=== PATIENT | female | born 1925 | race Caucasian/White ===

== ENCOUNTER 2016-09-26 19:00 | Inpatient (IN) | payer MEDICARE ==
[~2016-09-26] VITALS: Ht 160 cm; Wt 81.9 kg
[~2016-09-26 19:00] MED LIST: AMLO5TAB22 PO; CLON.1 PO; DEPA250T2 PO; DEPA500T3 PO; HYDR-2768 PO; LISI-363 PO; MMW SWISH-SWAL; NORT1CAP54 PO; QUET200 PO
[2016-09-26 19:56] VITALS: BP 164/73; PULSE 88; RESP 18; TEMP 97.1; O2SAT 93
--- NOTE | 2016-09-26 20:24 | PD ---
HPI Chief Complaint: Fall Time Seen by Provider: 20:02 Travel History International Travel<30 days: No Contact w/Intl Traveler<30days: No Traveled to known affect area: No History of Present Illness HPI 89-year-old female came to the emergency room after tripping and falling while using her walker. Patient does have history of frequent falls. After she fell she was unable to get up or stand due to left hip pain. She was brought in by EMS and currently she continues to complain of left hip pain. Patient is slightly hypoxic in triage but does not look or complaining of shortness of breath. Denies of pain anywhere else. She did hit her head but did not lose consciousness. PFSH Past Medical History Narrative Medical List of her past medical history is reviewed from the nursing note. Arthritis: Yes Blood Disorders: No Bipolar Disorder: Yes Anxiety: Yes Depression: Yes Cardiovascular Problems: Yes High Cholesterol: No Chest Pain: Yes Congestive Heart Failure: Yes Diabetes: No Diminished Hearing: No Endocrine: No Gastrointestinal Disorders: No Genitourinary: No Hypertension: Yes Immune Disorder: No Implanted Vascular Access Dvce: No Musculoskeletal: No Neurologic: No Psychiatric: Yes Reproductive: No Respiratory: Yes Immunizations Current: Yes Migraines: Yes PNEUMOCCOCAL Vaccine (Year): 1 ?: Not Menopausal: Yes : 3 Para: 3 Past Surgical History Abdominal Surgery: Yes (Cholecystectomy) Appendectomy: Yes Arteriovenous Shunt: No Cardiac Surgery: No Cholecystectomy: Yes Ear Surgery: No Endocrine Surgery: No Eye Surgery: No Genitourinary Surgery: No Gynecologic Surgery: No Hysterectomy: Yes (1973) Insulin Pump: No Joint Replacement: No Neurologic Surgery: No Oral Surgery: No Pacemaker: No Thoracic Surgery: No Other Surgery: Yes Family History Family Hypercholesterolemia: Yes Social History Alcohol Use: No Tobacco Use: No (50 YEARS AGO) Substance Use: No Allergies-Medications (Allergen,Severity, Reaction): Coded Allergies: Ingrid (Verified Allergy, Severe, Dizziness, Shaking, 09/26/16) Prednisone (Verified Allergy, Severe, 09/26/16) UNKNOWN REACTION DENIES ALLERGY Comments List of her allergies reviewed from the nursing note. Reported Meds & Prescriptions Reported Meds & Active Scripts Active Mmw 15 Ml SWISH-SWAL Q3H MAGIC MOUTHWASH=MIX 1/3 VISCOUS LIDOCAINE(60 ML),1/3 MAALOX(60 ML),AND 1/3BENADRYL(60 ML) TO EQUAL 180 ML TOTAL. Reported Lisinopril 20 mg (Lisinopril) 20 Mg Tab 1 Tab PO DAILY Pamelor 10 Mg C10 Mg 10 Mg Cap 1 Cap PO HS Hctz (Hydrochlorothiazide) 25 Mg Tab 25 Mg PO DAILY PRN [id number] 250 Mg Tab 1 Tab PO DAILY Depakote ER 500 mg (Divalproex Sodium) 500 Mg Tab 500 Mg PO HS Amlodipine5 5 Mg Tab 5 Mg PO DAILY Catapres 0.1 mg (Clonidine HCl) 0.1 Mg Tab 0.05 Tab PO BID Quetiapine Fumarate 200 Mg Tab 150 Mg PO HS Narrative Medication List of her home medications reviewed from the nursing note. Review of Systems Except as stated in HPI: all other systems reviewed are Neg Physical Exam Narrative GENERAL: Awake, alert, elderly, no obvious distress SKIN: Warm and dry. HEAD: Atraumatic. Normocephalic. EYES: Pupils equal and round. No scleral icterus. No injection or drainage. ENT: No nasal bleeding or discharge. Mucous membranes pink and moist. NECK: Trachea midline. No JVD. CARDIOVASCULAR: Regular rate and rhythm. No murmur appreciated. RESPIRATORY: No accessory muscle use. Clear to auscultation. Breath sounds equal bilaterally. GASTROINTESTINAL: Abdomen soft, non-tender, nondistended. Hepatic and splenic margins not palpable. MUSCULOSKELETAL: Left leg shortening. No clubbing. No cyanosis. No edema. No active or passive range of motion at the left hip due to the pain. NEUROLOGICAL: Awake and alert. No obvious cranial nerve deficits. Motor grossly within normal limits. Normal speech. PSYCHIATRIC: Appropriate mood and affect; insight and judgment normal. Data Data Last Documented VS Vital Signs Date Time Temp Pulse Resp B/P Pulse Ox O2 Delivery O2 Flow Rate FiO2 09/26/16 21:38 14 09/26/16 20:30 Room Air 09/26/16 19:56 97.1 88 164/73 93 Orders Complete Blood Count With Diff (09/26/16 20:30) Basic Metabolic Panel (Bmp) (09/26/16 20:30) Prothrombin Time / Inr (Pt) (09/26/16 20:30) Type And Screen (09/26/16 20:30) Chest, Single Ap (09/26/16 ) Morphine Inj (Morphine Inj) (09/26/16 20:30) Ondansetron Inj (Zofran Inj) (09/26/16 20:30) Electrocardiogram (09/26/16 ) Urinary Catheter Insert/Apply (09/26/16 20:30) Valproic Acid (Depakene) (09/26/16 20:58) Ct Brain W/O Iv Contrast(Rout) (09/26/16 ) Hip, Uni(Ap&Lat) W Ap Pelvis (09/26/16 ) Admit Order (Ed Use Only) (09/26/16 22:49) Labs Laboratory Tests Test 09/26/16 21:30 White Blood Count 13.6 TH/MM3 Red Blood Count 3.86 MIL/MM3 Hemoglobin 11.7 GM/DL Hematocrit 35.9 % Mean Corpuscular Volume 92.9 FL Mean Corpuscular Hemoglobin 30.4 PG Mean Corpuscular Hemoglobin 32.7 % Concent Red Cell Distribution Width 15.6 % Platelet Count 161 TH/MM3 Mean Platelet Volume 8.2 FL Neutrophils (%) (Auto) 77.4 % Lymphocytes (%) (Auto) 16.2 % Monocytes (%) (Auto) 5.1 % Eosinophils (%) (Auto) 0.7 % Basophils (%) (Auto) 0.6 % Neutrophils # (Auto) 10.5 TH/MM3 Lymphocytes # (Auto) 2.2 TH/MM3 Monocytes # (Auto) 0.7 TH/MM3 Eosinophils # (Auto) 0.1 TH/MM3 Basophils # (Auto) 0.1 TH/MM3 CBC Comment DIFF FINAL Differential Comment Prothrombin Time 10.2 SEC Prothromb Time International 0.9 RATIO Ratio Sodium Level 139 MEQ/L Potassium Level 4.0 MEQ/L Chloride Level 103 MEQ/L Carbon Dioxide Level 27.5 MEQ/L Anion Gap 9 MEQ/L Blood Urea Nitrogen 31 MG/DL Creatinine 0.97 MG/DL Estimat Glomerular Filtration 54 ML/MIN Rate Random Glucose 113 MG/DL Calcium Level 8.2 MG/DL Valproic Acid (Depakene) Level 66 MCG/ML Blood Type O POSITIVE Antibody Screen NEGATIVE MDM Medical Decision Making Medical Screen Exam Complete: Yes Emergency Medical Condition: Yes Medical Record Reviewed: Yes Interpretation(s) Twelve-lead EKG was reviewed by me. Normal sinus rhythm, left axis deviation, old anterior GA, nonspecific ST-T wave changes. Heart rate of 85 bpm. Differential Diagnosis Hip fracture, hip dislocation Narrative Course 8:57 PM awaiting for the x-ray and the blood test results. I was informed by the nurse that patient's oxygen saturation is running at 89% on room air. She has been supplemented with oxygen via nasal cannula. Awaiting for the chest x- ray. I will order a head CT due to the head injury she sustained during the fall. 9:43 PM left cervical neck fracture. Patient will require to be admitted. Awaiting for the blood test results to come back. Procedures EKG Prior to Arrival: No Physician Communication Physician Communication Dr. Johnson Diagnosis Primary Impression: Hip fracture, left Qualified Code: S72.002A - Hip fracture, left, closed, initial encounter Additional Impression: Hypoxia Admitting Information Admitting Physician Requests: Admit Scripts Rivaroxaban (Xarelto)10 Mg Tab10 Mg PO DAILY #14 TAB Ref 0 Prov:Lamberto Lea 09/28/16 Hydrocodone-Acetaminophen ([place])7.5-325 mg Tab1 Tab PO Q4H PRN (PAIN) #60 TAB Ref 0 Prov:Lamberto Lea 09/28/16 Marino Barrera MD Sep 26, 2016 20:24
[2016-09-26] MEDS ORDERED: MORPHINE SULFATE 4 MG/ML INJ IV PUSH ONE (20:30)
[2016-09-26] MEDS ORDERED: ONDANSETRON HCL 4 MG/2 ML VIAL IV PUSH ONE (20:30)
--- NOTE | 2016-09-26 21:36 | RADRPT ---
EXAM DATE/TIME: 09/26/2016 20:52 [facility] COMPARISON: CHEST SINGLE AP, December 19, 2014, 4:48. INDICATIONS : Trauma. Patient fell today. MEDICAL HISTORY : Hypertension. Congestive heart failure. SURGICAL HISTORY : None. ENCOUNTER: Initial ACUITY: 1 day PAIN SCORE: 0/10 LOCATION: Bilateral chest FINDINGS: A single view of the chest demonstrates the lungs to be symmetrically aerated without evidence of mas s, infiltrate or effusion. The cardiomediastinal contours are unremarkable. Osseous structures are intact. CONCLUSION: No definite acute disease Kolton Valverde MD on September 26, 2016 at 21:34 Board Certified Radiologist. This report was verified electronically.
--- NOTE | 2016-09-26 21:38 | RADRPT ---
EXAM DATE/TIME: 09/26/2016 20:54 [facility] COMPARISON: No previous studies available for comparison. INDICATIONS : Left hip pain after fall. MEDICAL HISTORY : None. SURGICAL HISTORY : None. ENCOUNTER: Initial ACUITY: 1 day PAIN SCORE: 10/10 LOCATION: Left Hip. FINDINGS: There is a moderately angulated basicervical left femoral neck fracture. Right hip is grossly intact. Mild degenerative changes present in both sides. No displaced pelvic fracture. CONCLUSION: Moderately angulated basicervical left femoral neck fracture. Kolton Valverde MD on September 26, 2016 at 21:36 Board Certified Radiologist. This report was verified electronically.
--- NOTE | 2016-09-26 21:41 | RADRPT ---
EXAM DATE/TIME: 09/26/2016 21:06 [facility] COMPARISON: CT CERVICAL SPINE W/O CONTRAST, October 09, 2015, 11:30. HIP LEFT (AP&LAT 2/3VWS) W AP PELVIS, 2016, 20:54. CT BRAIN W/O CONTRAST, October 09, 2015, 11:30. INDICATIONS : Trauma; fall today. RADIATION DOSE: 34.26 CTDIvol (mGy) MEDICAL HISTORY : Hypertension. SURGICAL HISTORY : None. ENCOUNTER: Initial ACUITY: 1 day PAIN SCALE: 2/10 LOCATION: cranial TECHNIQUE: Multiple contiguous axial images were obtained of the head. Using automated exposure control and adj ustment of the mA and/or kV according to patient size, radiation dose was kept as low as reasonably a chievable to obtain optimal diagnostic quality images. FINDINGS: Ventricles are stable and symmetric. There is patchy mild diminished attenuation in periventricular w michaela matter which is unchanged. Bilateral basal ganglial calcifications are noted. No evidence of int racranial mass or hemorrhage. There is nothing to suggest acute infarction. The extracranial structur es are benign and intact. CONCLUSION: No acute intracranial findings Kolton Valverde MD on September 26, 2016 at 21:38 Board Certified Radiologist. This report was verified electronically.
[2016-09-26 21:51] LABS: AUTOMATED NEUTROPHIL # 10.5 TH/MM3 (1.8-7.7); BASOPHIL # 0.1 TH/MM3 (0-0.2); BASOPHIL % 0.6 % (0.0-2.0); EOSINOPHIL # 0.1 TH/MM3 (0-0.4); EOSINOPHIL % 0.7 % (0.0-4.0); HEMATOCRIT 35.9 % (35.0-46.0); HEMO FLAGS DIFF FINAL; LYMPH % 16.2 % (9.0-44.0); LYMPHOCYTE # 2.2 TH/MM3 (1.0-4.8); MEAN CELL VOLUME 92.9 FL (80.0-100.0); MEAN CORPUSCULAR HEMOGLOBIN 30.4 PG (27.0-34.0); MEAN CORPUSCULAR HGB CONC 32.7 % (32.0-36.0); MONO % 5.1 % (0.0-8.0); NEUT % 77.4 % (16.0-70.0); PLATELET COUNT 161 TH/MM3 (150-450); RED BLOOD COUNT 3.86 MIL/MM3 (4.00-5.30); RED CELL DISTRIBUTION WIDTH 15.6 % (11.6-17.2); WHITE BLOOD COUNT 13.6 TH/MM3 (4.0-11.0)
[2016-09-26 22:03] LABS: INTERNATIONAL NORMALIZED RATIO 0.9 RATIO; PROTHROMBIN TIME - PATIENT 10.2 SEC (9.8-11.6)
[2016-09-26 22:26] LABS: BICARBONATE 27.5 MEQ/L (21.0-32.0)
[2016-09-26] MEDS ORDERED: ONDANSETRON HCL 4 MG/2 ML VIAL IVP PRN (23:00)
[2016-09-26] MEDS ORDERED: ENALAPRILAT 1.25 MG/ML VIAL IV PUSH PRN (23:00)
[2016-09-26] MEDS ORDERED: NALOXONE HCL 0.4 MG/ML AMP IV PRN (23:00)
[2016-09-26] MEDS ORDERED: SODIUM CHLORIDE 0.9% FLUSH 5 ML FLUSH FLUSH PRN (23:00)
[2016-09-26] MEDS ORDERED: HYDROmorphone HCL 2 MG TAB PO PRN (23:00)
--- NOTE | 2016-09-26 23:12 | HHI.HP ---
HPI Service [facility] Hospitalists Primary Care Physician Godfrey Ludwig, PhD, MD Admission Diagnosis left hip fracture, hypoxia Chief Complaint: fall with pain left hip Travel History International Travel<30 Days: No Contact w/Intl Traveler <30 Da: No Traveled to Known Affected Are: No History of Present Illness 89 y/o female with hx trip and fall while using walker with hx frequent falls was unable to stand without pain to left hip. In er had xray showed left femeral fracture ,also patient had slight hypoxia required oxygen . Patient will be admitted with orthopedic consult. Review of Systems Musculoskeletal: COMPLAINS OF: Joint pain Past Family Social History Past Medical History bipolar ,djd,anxiety,depression,chf,hypertension Past Surgical History gallbladder,hysterectomy Reported Medications lisinopril 20,pamalor 10,depakote 250 and 500mg ,norvasc 5 catapres ,5 bid Quetiapine 150 Allergies: Coded Allergies: Ingrid (Verified Allergy, Severe, Dizziness, Shaking, 09/26/16) Prednisone (Verified Allergy, Severe, 09/26/16) UNKNOWN REACTION DENIES ALLERGY Social History smoked years ago Physical Exam Vital Signs Vital Signs Date Time Temp Pulse Resp B/P Pulse Ox O2 Delivery O2 Flow Rate FiO2 09/26/16 21:38 14 09/26/16 20:30 Room Air 09/26/16 19:56 97.1 88 18 164/73 93 Physical Exam GENERAL: This is a well-nourished, well-developed patient, in no apparent distress. SKIN: No rashes, ecchymoses or lesions. Cool and dry. HEAD: Atraumatic. Normocephalic. No temporal or scalp tenderness. EYES: Pupils equal round and reactive. Extraocular motions intact. No scleral icterus. No injection or drainage. ENT: Nose without bleeding, purulent drainage or septal hematoma. Throat without erythema, tonsillar hypertrophy or exudate. Uvula midline. Airway patent. NECK: Trachea midline. No JVD or lymphadenopathy. Supple, nontender, no meningeal signs. CARDIOVASCULAR: Regular rate and rhythm without murmurs, gallops, or rubs. RESPIRATORY: Clear to auscultation. Breath sounds equal bilaterally. No wheezes , rales, or rhonchi. GASTROINTESTINAL: Abdomen soft, non-tender, nondistended. No hepato-splenomegaly , or palpable masses. No guarding. MUSCULOSKELETAL: Extremities without clubbing, cyanosis, or edema. Pain on movement left hip NEUROLOGICAL: Awake and alert. Cranial nerves II through XII intact. Motor and sensory grossly within normal limits. Five out of 5 muscle strength in all muscle groups. Normal speech. Laboratory Laboratory Tests Test 09/26/16 21:30 White Blood Count 13.6 Red Blood Count 3.86 Hemoglobin 11.7 Hematocrit 35.9 Mean Corpuscular Volume 92.9 Mean Corpuscular Hemoglobin 30.4 Mean Corpuscular Hemoglobin 32.7 Concent Red Cell Distribution Width 15.6 Platelet Count 161 Mean Platelet Volume 8.2 Neutrophils (%) (Auto) 77.4 Lymphocytes (%) (Auto) 16.2 Monocytes (%) (Auto) 5.1 Eosinophils (%) (Auto) 0.7 Basophils (%) (Auto) 0.6 Neutrophils # (Auto) 10.5 Lymphocytes # (Auto) 2.2 Monocytes # (Auto) 0.7 Eosinophils # (Auto) 0.1 Basophils # (Auto) 0.1 CBC Comment DIFF FINAL Differential Comment Prothrombin Time 10.2 Prothromb Time International 0.9 Ratio Sodium Level 139 Potassium Level 4.0 Chloride Level 103 Carbon Dioxide Level 27.5 Anion Gap 9 Blood Urea Nitrogen 31 Creatinine 0.97 Estimat Glomerular Filtration 54 Rate Random Glucose 113 Calcium Level 8.2 Valproic Acid (Depakene) Level 66 Result Diagram: 09/26/16212909/26/162129 Imaging Last 24 hours Impressions Hip and Pelvis X-Ray 09/26/16 0000 Signed Impressions: Service Date/Time: Monday, September 26, 2016 20:54 - CONCLUSION: Moderately angulated basicervical left femoral neck fracture. Kolton Valverde MD Head CT 09/26/16 0000 Signed Impressions: Service Date/Time: Monday, September 26, 2016 21:06 - CONCLUSION: No acute intracranial findings Kolton Valverde MD Chest X-Ray 09/26/16 0000 Signed Impressions: Service Date/Time: Monday, September 26, 2016 20:52 - CONCLUSION: No definite acute disease Kolton Valverde MD Course in er given pain meds Assessment and Plan Problem List: (1) Hip fracture, left Status: Acute Plan: admit with ortho consult (2) Hypoxia Status: Acute Plan: required oxygen 2 liters with improvement chest xray was negative (3) HTN (hypertension), benign Status: Acute Plan: continue home meds add vasotec IV (4) Bipolar 1 disorder Status: Chronic Plan: continue home meds Assessment and Plan ortho consult continue oxygen and did have negative CT head and had slight elevation wbc will get urine and follow up labs Code Status full Discussed Condition With patient Physician Certification 2 Midnight Certification Type: Admission for Inpatient Services Order for Inpatient Services The services are ordered in accordance with Medicare regulations or non- Medicare payer requirements, as applicable. In the case of services not specified as inpatient-only, they are appropriately provided as inpatient services in accordance with the 2-midnight benchmark. Estimated LOS (days): 3 3 days is the estimated time the patient will need to remain in the hospital, assuming treatment plan goals are met and no additional complications. Post-Hospital Plan: SNF Problem Qualifiers (1) Hip fracture, left: Qualified Code: S72.002A - Hip fracture, left, closed, initial encounter Cash Johnson MD Sep 26, 2016 23:12
[2016-09-26] MEDS ORDERED: NYSTAT/DIPHENHY/LIDO MOUTHWASH (Adult) 120ML SWISH-SPIT PRN (23:30)
[2016-09-26] MEDS ORDERED: HYDROmorphone HCL PF 1 MG/ML VIAL IV PUSH PRN (23:45)
[2016-09-27] VITALS (8 sets, daily range): BP systolic 138–218; BP diastolic 65–99; PULSE 82–106; RESP 16–19; TEMP 96.1–99.8; O2SAT 92–96
[2016-09-27] MEDS ORDERED: SODIUM CHLORID 0.9% 500 ML IV SCH (01:15)
[2016-09-27] MEDS ORDERED: INSULIN HUMAN REGULAR 1,000 UNITS/10 ML VIAL SQ PRN (01:15)
[2016-09-27] MEDS: LACTATED RINGER'S 1000 ML IV SCH (05:36)
[2016-09-27] MEDS: SODIUM CHLOR 0.45% 1000 ML INJ 1,000 ML IV SCH (05:36)
--- NOTE | 2016-09-27 06:58 | PD.ORT.PN ---
Subjective Subjective Remarks s/p fall at home. left hip pain. Objective Vitals Vital Signs Date Time Temp Pulse Resp B/P Pulse Ox O2 Delivery O2 Flow Rate FiO2 09/27/16 05:38 95 Nasal Cannula 4.00 09/27/16 04:00 96.1 89 16 166/73 95 09/27/16 01:35 96.6 86 17 165/81 95 09/27/16 00:00 96.6 96 16 218/99 92 09/26/16 21:38 14 09/26/16 20:30 Room Air 09/26/16 19:56 97.1 88 18 164/73 93 I/O 09/26/16 09/26/16 09/26/16 09/27/16 09/27/16 09/27/16 07:00 15:00 23:00 07:00 15:00 23:00 Intake Total 480 ml Balance 480 ml Intake Oral 480 ml # Voids 0 # Bowel Movements 0 Result Diagram: 09/26/16212909/26/162129 Other Results Laboratory Tests Test 09/26/16 21:30 Prothrombin Time 10.2 SEC (9.8-11.6) Prothromb Time International 0.9 RATIO Ratio Objective Remarks LLE: pain with hip ROM. NVI Assessment & Plan Assessment and Plan 1) Left Femoral Neck Fx -npo -consents -surgery today Lamberto Lea Sep 27, 2016 06:58
--- NOTE | 2016-09-27 07:12 | MB ---
cc: RASHMI RIVAS DATE OF CONSULTATION 09/27/2016 DATE OF ADMISSION 09/26/[address] Mika Del Toro HISTORY Oralia is an 89-year female who has a history of multiple falls. She normally ambulates with a walker or a cane. She describes a mechanical fall. She landed on her left hip. She had immediate left hip pain. She was unable to stand or ambulate. She presented to the emergency room where x-rays revealed a displaced left femoral neck fracture. She is currently awake and alert on the orthopedic floor. Her only complaint is her left hip. Pain is worse with movement and is improved with rest. She denies any dizziness, syncope or loss of consciousness. She denies any hip pain prior to her fall. PAST MEDICAL HISTORY ILLNESSES 1. Bipolar disorder 2. Arthritis 3. Anxiety 4. Depression 5. CHF 6. Hypertension SURGERIES 1. Cholecystectomy 2. Hysterectomy MEDICATIONS 1. Lisinopril 2. Depakote 3. Norvasc 4. Catapres 5. Quetiapine ALLERGIES LUCIA AND PREDNISONE SOCIAL HISTORY The patient denies current alcohol, tobacco or drug use. REVIEW OF SYSTEMS The patient denies headache, visual changes, neck pain, chest pain, abdominal pain, nausea, vomiting, recent weight loss, numbness of the extremities. She complains of the left hip pain. PHYSICAL EXAMINATION The patient is a well-developed, well-nourished 89-year female who is awake and alert. She is mildly anxious. VITAL SIGNS: Temperature 96.1, pulse 89, respirations 16, blood pressure 166/73, O2 sat 95% on 4 liters nasal cannula. HEAD: The patient is normocephalic. EYES: Pupils are equal. NECK: Soft and nontender. Trachea is midline. ABDOMEN: Soft, nontender, nondistended. EXTREMITIES: Examination of right and left upper extremities reveals no obvious pain or deformity with shoulder, elbow or wrist motion. She has intact sensation in all fingers. She has good cap refill in all fingers. Sports Announcer strength is +5. Skin is intact in both hands. Radial pulses are palpable bilaterally. Examination of the right leg reveals no pain with hip, knee or ankle motion. Skin is intact. Dorsalis pedis pulses palpable. Sensation is grossly intact. Examination of the left leg reveals pain with any hip motion. She has no tenderness on her knee, tibia or ankle. Sensation is intact. Dorsalis pedis pulses palpable. X-RAYS X-rays of left hip were reviewed. X-rays reveal a displaced left femoral neck fracture. IMPRESSION 1. Osteoporosis 2. Displaced left femoral neck fracture 3. CHF 4. Hypertension PLAN Treatment options were discussed with the patient. At this point, I would recommend left hip hemiarthroplasty. The risks of surgery include bleeding, infection, injury to arteries, nerves and blood vessels, hip dislocation, leg length discrepancy as well as medical complications including blood clot, stroke, heart attack and . All questions were answered. I will plan on surgery today. A mid-level provider in my office (nurse practitioner or physician coding assistant) may see this patient on follow-up visits and continue to implement the objectives of this plan including: Starting or adjusting medications, injections , cast application, orthotics, brace application, physical therapy, radiological studies (including x-ray, MRI, CT, ultrasound, bone scan), vascular studies, neurologic studies, specialist consultation, and proceeding with surgical management, as appropriate. MD JOE Padilla/RACHEL /6:53 AM /7:04 AM TERESO
[2016-09-27 08:06] LABS: AUTOMATED NEUTROPHIL # 11.5 TH/MM3 (1.8-7.7); BASOPHIL # 0.1 TH/MM3 (0-0.2); BASOPHIL % 0.5 % (0.0-2.0); EOSINOPHIL # 0.1 TH/MM3 (0-0.4); HEMO FLAGS DIFF FINAL; LYMPH % 10.8 % (9.0-44.0); LYMPHOCYTE # 1.6 TH/MM3 (1.0-4.8); MEAN CELL VOLUME 93.1 FL (80.0-100.0); MEAN CORPUSCULAR HGB CONC 33.3 % (32.0-36.0); MONO % 7.7 % (0.0-8.0); PLATELET COUNT 146 TH/MM3 (150-450); RED BLOOD COUNT 3.66 MIL/MM3 (4.00-5.30); RED CELL DISTRIBUTION WIDTH 15.5 % (11.6-17.2); WHITE BLOOD COUNT 14.3 TH/MM3 (4.0-11.0)
[2016-09-27] MEDS ORDERED: ceFAZolin 2 GM PREMIX 50 ML ONE (08:15)
[2016-09-27] MEDS ORDERED: VANCOMYCIN HCL 1000 MG VIAL ONE (08:15)
[2016-09-27] MEDS ORDERED: SODIUM CHLOR 0.9% 250 ML INJ 250 ML ONE (08:15)
[2016-09-27] MEDS ORDERED: GENTAMICIN SULFATE 80 MG/2 ML VIAL ONE (08:15)
[2016-09-27] MEDS ORDERED: FAMOTIDINE 20 MG/2 ML VIAL ONE (08:18)
[2016-09-27 08:33] LABS: BICARBONATE 27.1 MEQ/L (21.0-32.0); POTASSIUM 4.2 MEQ/L (3.5-5.1)
[2016-09-27] MEDS ORDERED: MIDAZOLAM HCL 2 MG/2 ML VIAL ONE (08:43)
[2016-09-27] MEDS: amLODIPine BESYLATE 5 MG TAB PO SCH (09:00)
[2016-09-27] MEDS: SODIUM CHLORIDE 0.9% FLUSH 5 ML FLUSH FLUSH SCH ×2 (09:00→21:36)
[2016-09-27] MEDS: DIVALPROEX SODIUM E.R. 250 MG TAB PO SCH (09:00)
[2016-09-27] MEDS: LISINOPRIL 20 MG TAB PO SCH (09:00)
[2016-09-27] MEDS: cloNIDine HCL 0.1 MG TAB PO SCH ×2 (09:00→21:37)
[2016-09-27] MEDS ORDERED: TRANEXAMIC ACID INJ 1,200 MG in SODIUM CHLORIDE 0.9% INJ 100 ML IV ONE (09:00)
[2016-09-27] MEDS ORDERED: MORPHINE SULFATE 4 MG/ML INJ IV PUSH PRN (10:30)
[2016-09-27] MEDS ORDERED: Post-op Orders (for Pharmacy) MISC XX ONE (10:30)
[2016-09-27] MEDS ORDERED: SODIUM CHLORIDE 0.9% FLUSH 5 ML FLUSH IVF PRN (10:30)
--- NOTE | 2016-09-27 10:34 | PD.OP ---
cc: Best Jeffery MD Operative Report Date of Surgery: Sep 27, 2016 Preoperative Diagnosis: Displaced left femoral neck fracture Postoperative Diagnosis: Procedure: Left hip bipolar hemiarthroplasty Anesthesia: Gen. Surgeon: Best Jeffery Cell Technician(s): HUDSON Vazquez PA-C The surgical procedure was assisted by my physician assistant librarian. My P.A. presence was necessary throughout this case for the manipulation and positioning of the surgical extremity. My P.A. was assisting me throughout the duration of this procedure. The skill set of a physician assistant librarian was medically necessary to complete this procedure. During the surgical case the radiological technologist was working at the back table and the physician assistant librarian was directly assisting me. Operation and Findings: PLAN OF ACTIVITY Weight bear as tolerated. IMPLANTS USED DePuy Corail size [14] stem with size [48] bipolar head and [+1.5] neck. DRAIN: 7 mm Dimitri-Reeder drain DETAILS OF PROCEDURE This patient was brought into the operating room and placed on the OR table. The patient was given anesthesia. The patient received IV antibiotics. The patient was then placed in lateral decubitus position. The hip and leg were prepped with alcohol, followed by Hibiclens and draped in a usual sterile fashion. Clean air was used for this procedure. Time out procedure was performed. The procedure began with a 5 inch incision over the posterolateral hip. The subcutaneous tissue was dissected with the Bovie. The iliotibial band were split in line with fibers. The Charnley retractor was placed. The piriformis and external rotators were released from the femur and tagged with a #1 Vicryl suture. The capsule is now incised and tagged with #1 Vicryl. The femoral neck fracture was now visualized. A corkscrew was now used to remove the femoral head. The femoral head was sized and measured. Soft tissue was now protected. The hip skid was placed underneath the femoral neck. An oscillating saw was used to make a femoral neck cut. At this point attention was turned to preparation of the proximal femur. A box osteotome was used to remove the lateral cortex of the femoral neck. The T- handle reamer was used to open the femoral canal. Next, the canal was broached. A lateralizing reamer was used to help lateralize the prosthesis. At this point a trial head and neck were placed. The hip was reduced. The patient was found to have excellent stability with good range of motion. Trial components were removed. Soft tissue and bone were thoroughly irrigated. A Corail stem was now opened. The stem was now impacted into the proximal femur. Care was taken to keep appropriate anteversion. The head and neck were now impacted onto the stem. The hip was again reduced. The hip was found to have good range of motion and good stability. Leg lengths were clinically equal. The wound was thoroughly irrigated. The capsule, piriformis and iliotibial band were closed with #1 Vicryl. Subcutaneous tissue was closed with 3-0 Vicryl. The skin was closed with radha. A sterile dressing was applied with Primapore. The patient was placed into a knee immobilizer. The patient was awakened and transferred to the recovery room in stable condition. Needle and sponge counts were correct. Best Jeffery MD Sep 27, 2016 10:34
[2016-09-27] MEDS ORDERED: ERGOCALCIFEROL (VIT D2) 50,000 UNIT CAP PO ONE (11:00)
[2016-09-27] MEDS ORDERED: DO NOT ADM ANY ANTICOAGULANT DRUGS XX PRN (11:00)
[2016-09-27] MEDS ORDERED: NEOSTIGMINE 3 MG/3 ML SYR IV ONE (11:02)
[2016-09-27] MEDS ORDERED: ONDANSETRON HCL 4 MG/2 ML VIAL IV PUSH ONE (11:02)
[2016-09-27] MEDS ORDERED: PROPOFOL 200 MG/20 ML AMP IV ONE (11:02)
[2016-09-27] MEDS ORDERED: *RESP: ALBUTEROL 2.5 MG/3 ML NEB (PRN) PERIprocedural Use ONLY NEB ONE (11:26)
--- NOTE | 2016-09-27 11:27 | EKG ---
Date Performed: 09/26/2016 Time Performed: 21:42:28 PTAGE: 89 years EKG: Sinus rhythm BORDERLINE LEFT AXIS DEVIATION MODERATE INTRAVENTRICULAR CONDUCTION DELAY MODERATE VOLTAGE CRITERIA FOR LVH, CONSIDER NORMAL VARIANT BORDERLINE ECG PREVIOUS TRACING : 12/18/2014 19.30 DOCTOR: Francisco Roberts Interpretating Date/Time 09/27/2016 11:25:36
[2016-09-27] MEDS ORDERED: fentaNYL CITRATE 250 MCG/5 ML AMP ONE (11:48)
--- NOTE | 2016-09-27 13:01 | RADRPT ---
EXAM DATE/TIME: 09/27/2016 11:18 [facility] COMPARISON: HIP LEFT (AP&LAT 2/3VWS) W AP PELVIS, September 26, 2016, 20:54. INDICATIONS : Evaluate left hip post total replacement. MEDICAL HISTORY : Hypertension. Congestive heart failure. SURGICAL HISTORY : Total left hip. ENCOUNTER: Subsequent ACUITY: 2 days PAIN SCORE: 4/10 LOCATION: Left Hip FINDINGS: The patient is status post a total hip arthroplasty with a bipolar prosthesis. Prosthesis is well-sea otto. Alignment is anatomic. A fracture is not appreciated. CONCLUSION: Anatomic alignment. Bam Rendon MD FACR. Bam Rendon MD FACR on September 27, 2016 at 12:59 Board Certified Radiologist. This report was verified electronically.
--- NOTE | 2016-09-27 14:47 | HHI.PR ---
Subjective Remarks No new complaints. Objective Vitals Vital Signs Date Time Temp Pulse Resp B/P Pulse Ox O2 Delivery O2 Flow Rate FiO2 09/27/16 13:00 98.5 82 19 138/65 93 09/27/16 12:15 84 16 135/83 96 Nasal Cannula 3 09/27/16 12:00 84 16 128/74 96 Aerosol Mask 10 09/27/16 11:45 80 16 140/84 95 Nasal Cannula 3 09/27/16 11:30 80 16 151/80 98 Aerosol Mask 10 09/27/16 11:15 82 16 141/85 95 Nasal Cannula 3 09/27/16 11:00 97.7 80 16 169/92 91 Nasal Cannula 3 09/27/16 08:00 97.4 92 18 194/83 96 09/27/16 05:38 95 Nasal Cannula 4.00 09/27/16 04:00 96.1 89 16 166/73 95 09/27/16 01:35 96.6 86 17 165/81 95 09/27/16 00:00 96.6 96 16 218/99 92 09/26/16 21:38 14 09/26/16 20:30 Room Air 09/26/16 19:56 97.1 88 18 164/73 93 09/26/16 09/26/16 09/27/16 15:00 23:00 07:00 Intake Total 480 ml Balance 480 ml Intake Oral 480 ml # Voids 0 # Bowel Movements 0 Result Diagram: 09/27/16 0703 09/27/16 0703 Imaging Last Impressions Hip and Pelvis X-Ray 09/27/16 1030 Signed Impressions: Service Date/Time: Tuesday, September 27, 2016 11:18 - CONCLUSION: Anatomic alignment. Bam Rendon MD Head CT 09/26/16 0000 Signed Impressions: Service Date/Time: Monday, September 26, 2016 21:06 - CONCLUSION: No acute intracranial findings Kolton Valverde MD Chest X-Ray 09/26/16 0000 Signed Impressions: Service Date/Time: Monday, September 26, 2016 20:52 - CONCLUSION: No definite acute disease Kolton Valverde MD Objective Remarks GENERAL: This is a well-nourished, well-developed patient, in no apparent distress. CARDIOVASCULAR: Regular rate and rhythm without murmurs, gallops, or rubs. RESPIRATORY: Clear to auscultation. Breath sounds equal bilaterally. No wheezes , rales, or rhonchi. GASTROINTESTINAL: Abdomen soft, non-tender, nondistended. Normal active bowel sounds MUSCULOSKELETAL: Extremities without clubbing, cyanosis, or edema. NEURO: Alert & Oriented x4 to person, place, time, situation. Moves all ext x4 A/P Problem List: (1) Hip fracture, left Status: Acute Plan: - repaired by Dr. Best Lowery by Left hip bipolar hemiarthroplasty - PT - norco prn - will need SNF at the conclusion of this hospitalization - constipation precautions (2) Hypoxia Status: Acute Plan: required oxygen 2 liters with improvement chest xray was negative (3) HTN (hypertension), benign Status: Acute Plan: continue home meds add vasotec IV (4) Bipolar 1 disorder Status: Chronic Plan: continue home meds Problem Qualifiers (1) Hip fracture, left: Qualified Code: S72.002A - Hip fracture, left, closed, initial encounter Mika Del Toro DO Sep 27, 2016 14:47
[2016-09-27] MEDS: ceFAZolin 2 GM PREMIX 50 ML IV SCH ×2 (15:55→21:36)
[2016-09-27] MEDS: ACETAMINOPHEN/HYDROcodone 325 MG/5 MG TAB PO PRN (18:52)
[2016-09-27] MEDS: SODIUM CHLORIDE 0.9% FLUSH 5 ML FLUSH IVF SCH (21:00)
[2016-09-27] MEDS: VANCOMYCIN INJ 1,000 MG in SODIUM CHLOR 0.9% 250 ML INJ 250 ML IV SCH (21:36)
[2016-09-27] MEDS: QUEtiapine FUMARATE 300 MG TAB PO SCH (21:37)
[2016-09-27] MEDS: DIVALPROEX SODIUM E.R. 500 MG TAB PO SCH (21:37)
[2016-09-28] VITALS (8 sets, daily range): BP systolic 111–166; BP diastolic 58–77; PULSE 81–105; RESP 17–18; TEMP 97.9–99.7; O2SAT 92–98
[2016-09-28] MEDS: LACTATED RINGER'S 1000 ML IV SCH (01:15)
[2016-09-28] MEDS: SODIUM CHLOR 0.45% 1000 ML INJ 1,000 ML IV SCH ×3 (01:23→19:56)
[2016-09-28] MEDS: ceFAZolin 2 GM PREMIX 50 ML IV SCH (03:09)
[2016-09-28] MEDS ORDERED: XARE10TA PO (06:14)
[2016-09-28] MEDS ORDERED: HYDR-3288 PO (06:14)
[2016-09-28] MEDS ORDERED: WALKER/ADULT/FO1 MIS (06:14)
[2016-09-28] MEDS: MAGNESIUM HYDROXIDE SUSP 30 ML CUP PO PRN ×2 (06:26→21:13)
[2016-09-28] MEDS: ACETAMINOPHEN/HYDROcodone 325 MG/5 MG TAB PO PRN (06:27)
[2016-09-28 07:12] LABS: AUTOMATED NEUTROPHIL # 7.6 TH/MM3 (1.8-7.7); BASOPHIL # 0.1 TH/MM3 (0-0.2); BASOPHIL % 0.8 % (0.0-2.0); EOSINOPHIL # 0.1 TH/MM3 (0-0.4); EOSINOPHIL % 1.2 % (0.0-4.0); HEMATOCRIT 29.7 % (35.0-46.0); LYMPH % 17.1 % (9.0-44.0); LYMPHOCYTE # 1.8 TH/MM3 (1.0-4.8); MEAN CELL VOLUME 93.2 FL (80.0-100.0); MEAN CORPUSCULAR HEMOGLOBIN 31.2 PG (27.0-34.0); MEAN CORPUSCULAR HGB CONC 33.4 % (32.0-36.0); MONO % 10.5 % (0.0-8.0); NEUT % 70.4 % (16.0-70.0); PLATELET COUNT 127 TH/MM3 (150-450); RED BLOOD COUNT 3.18 MIL/MM3 (4.00-5.30); RED CELL DISTRIBUTION WIDTH 15.5 % (11.6-17.2); WHITE BLOOD COUNT 10.8 TH/MM3 (4.0-11.0)
[2016-09-28 07:20] LABS: HEMO FLAGS AUTO DIFF
[2016-09-28 07:31] LABS: BICARBONATE 29.8 MEQ/L (21.0-32.0); MAGNESIUM 2.2 MG/DL (1.5-2.5); POTASSIUM 4.3 MEQ/L (3.5-5.1)
[2016-09-28 08:50] LABS: BANDS 2 % (0-6); EOSINOPHILS 3 % (0-4); MYELOCYTES 2 % (0-0); NEUTROPHIL # MANUAL DIFF 8.5 TH/MM3 (1.8-7.7); POLYS (SEG NEUTROPHILS) 75 % (16-70); WBC DIFF SAMPLE 100
[2016-09-28 08:51] LABS: PLATELET ESTIMATE SMEAR LOW (NORMAL); PLATELET MORPHOLOGY NORMAL (NORMAL); SCAN/DIFF FINAL DIFF MANUAL
[2016-09-28] MEDS: SODIUM CHLORIDE 0.9% FLUSH 5 ML FLUSH IVF SCH ×2 (09:00→21:00)
[2016-09-28] MEDS: VANCOMYCIN INJ 1,000 MG in SODIUM CHLOR 0.9% 250 ML INJ 250 ML IV SCH (09:35)
[2016-09-28] MEDS: ENOXAPARIN SODIUM 30 MG/0.3 ML SYRINGE SQ SCH (09:36)
[2016-09-28] MEDS: DIVALPROEX SODIUM E.R. 250 MG TAB PO SCH (09:37)
[2016-09-28] MEDS: cloNIDine HCL 0.1 MG TAB PO SCH ×2 (09:37→21:13)
[2016-09-28] MEDS: LISINOPRIL 20 MG TAB PO SCH (09:37)
[2016-09-28] MEDS: amLODIPine BESYLATE 5 MG TAB PO SCH (09:37)
[2016-09-28] MEDS: CHOLECALCIFEROL (VIT D3) 5000 UNIT CAP PO SCH (09:37)
[2016-09-28] MEDS: SODIUM CHLORIDE 0.9% FLUSH 5 ML FLUSH FLUSH SCH ×2 (09:38→21:13)
--- NOTE | 2016-09-28 14:44 | HHI.PR ---
Subjective Remarks Pleasantly confused No complaints. Sitting in the chair Pt still requiring 3L supplemental O2 Pts Brittany MURILLO, at bedside and case discussed with her. Objective Vitals Vital Signs Date Time Temp Pulse Resp B/P Pulse Ox O2 Delivery O2 Flow Rate FiO2 09/28/16 09:50 Nasal Cannula 3.00 09/28/16 07:52 99.0 95 17 120/59 93 09/28/16 04:00 99.1 102 18 166/77 92 09/28/16 00:00 99.0 105 18 111/58 96 09/27/16 21:05 98.6 103 17 197/88 95 09/27/16 18:23 Nasal Cannula 3.00 09/27/16 16:00 99.8 106 18 149/68 94 09/27/16 09/27/16 09/28/16 14:59 22:59 06:59 Intake Total 50 ml 720 ml 240 ml Output Total 210 ml 470 ml 435 ml Balance -160 ml 250 ml -195 ml Intake Oral 720 ml 240 ml IV Total 50 ml Output Urine Total 150 ml 400 ml 375 ml Drainage Total 60 ml 70 ml 60 ml # Bowel Movements 0 0 Result Diagram: 09/28/16 0629 09/28/16 0629 Other Results Laboratory Tests Test 09/26/16 09/27/16 09/27/16 09/28/16 21:30 05:30 07:03 06:29 White Blood Count 13.6 TH/MM3 14.3 TH/MM3 10.8 TH/MM3 Red Blood Count 3.86 MIL/MM3 3.66 MIL/MM3 3.18 MIL/MM3 Hemoglobin 11.7 GM/DL 11.3 GM/DL 9.9 GM/DL Hematocrit 35.9 % 34.0 % 29.7 % Mean Corpuscular Volume 92.9 FL 93.1 FL 93.2 FL Mean Corpuscular Hemoglobin 30.4 PG 31.0 PG 31.2 PG Mean Corpuscular Hemoglobin 32.7 % 33.3 % 33.4 % Concent Red Cell Distribution Width 15.6 % 15.5 % 15.5 % Platelet Count 161 TH/MM3 146 TH/MM3 127 TH/MM3 Mean Platelet Volume 8.2 FL 8.1 FL 8.1 FL Neutrophils (%) (Auto) 77.4 % 80.0 % 70.4 % Lymphocytes (%) (Auto) 16.2 % 10.8 % 17.1 % Monocytes (%) (Auto) 5.1 % 7.7 % 10.5 % Eosinophils (%) (Auto) 0.7 % 1.0 % 1.2 % Basophils (%) (Auto) 0.6 % 0.5 % 0.8 % Neutrophils # (Auto) 10.5 TH/MM3 11.5 TH/MM3 7.6 TH/MM3 Lymphocytes # (Auto) 2.2 TH/MM3 1.6 TH/MM3 1.8 TH/MM3 Monocytes # (Auto) 0.7 TH/MM3 1.1 TH/MM3 1.1 TH/MM3 Eosinophils # (Auto) 0.1 TH/MM3 0.1 TH/MM3 0.1 TH/MM3 Basophils # (Auto) 0.1 TH/MM3 0.1 TH/MM3 0.1 TH/MM3 CBC Comment DIFF FINAL DIFF FINAL AUTO DIFF Differential Comment FINAL DIFF MANUAL Prothrombin Time 10.2 SEC Prothromb Time International 0.9 RATIO Ratio Sodium Level 139 MEQ/L 139 MEQ/L 137 MEQ/L Potassium Level 4.0 MEQ/L 4.2 MEQ/L 4.3 MEQ/L Chloride Level 103 MEQ/L 103 MEQ/L 100 MEQ/L Carbon Dioxide Level 27.5 MEQ/L 27.1 MEQ/L 29.8 MEQ/L Anion Gap 9 MEQ/L 9 MEQ/L 7 MEQ/L Blood Urea Nitrogen 31 MG/DL 25 MG/DL 18 MG/DL Creatinine 0.97 MG/DL 0.79 MG/DL 0.91 MG/DL Estimat Glomerular Filtration 54 ML/MIN 69 ML/MIN 58 ML/MIN Rate Random Glucose 113 MG/DL 101 MG/DL 105 MG/DL Calcium Level 8.2 MG/DL 8.5 MG/DL 8.1 MG/DL Valproic Acid (Depakene) Level 66 MCG/ML Blood Type O POSITIVE Antibody Screen NEGATIVE Nasal Screen MRSA (PCR) NEGATIVE 25-Hydroxy Vitamin D Total 27.7 ng/ML Differential Total Cells 100 Counted Neutrophils % (Manual) 75 % Band Neutrophils % 2 % Lymphocytes % 12 % Monocytes % 6 % Eosinophils % 3 % Neutrophils # (Manual) 8.5 TH/MM3 Myelocytes 2 % Platelet Estimate LOW Platelet Morphology Comment NORMAL Red Cell Morphology Comment NORMAL Magnesium Level 2.2 MG/DL Imaging Last Impressions Hip and Pelvis X-Ray 09/27/16 1030 Signed Impressions: Service Date/Time: Tuesday, September 27, 2016 11:18 - CONCLUSION: Anatomic alignment. Bam Rendon MD Head CT 09/26/16 0000 Signed Impressions: Service Date/Time: Monday, September 26, 2016 21:06 - CONCLUSION: No acute intracranial findings Kolton Valverde MD Chest X-Ray 09/26/16 0000 Signed Impressions: Service Date/Time: Monday, September 26, 2016 20:52 - CONCLUSION: No definite acute disease Kolton Valverde MD Objective Remarks General: NAD, pleasantly confused Chest: CTA bilaterally Cardiac: Regular Abd: +BS, soft ND/NT Ext: bandages are c/d/i A/P Problem List: (1) Hip fracture, left Status: Acute Plan: - Pt admitted after a trip and fall at home and sustained a left hip fracture - s/p repair by Dr. Best Lowery with left hip bipolar hemiarthroplasty on 09/27/16 - PT daily - Pain control PRN - Constipation precautions - IS - Pt will need SNF at the conclusion of this hospitalization (2) Hypoxia Status: Acute Plan: - Pt still hypoxic and requiring supplemental O2 @ 3L currently and periodically has been on aerosol mask - Chest Xray was negative - Check CTA chest to r/o PE (3) HTN (hypertension), benign Status: Acute Plan: - Cont. Lisinopril 20mg podaily, Clonidine 0.05mg BID, Norvasc 5mg po daily - Vasotec PRN (4) Bipolar 1 disorder Status: Chronic Plan: - Continue home meds Assessment and Plan Patient examined. Assessment and plan formulated with Sharmaine May PA-C. I agree with the above. Problem Qualifiers (1) Hip fracture, left: Qualified Code: S72.002A - Hip fracture, left, closed, initial encounter Sharmaine May Sep 28, 2016 14:44 Mika Del Toro DO Sep 29, 2016 13:11
[2016-09-28] MEDS ORDERED: IOHEXOL 350 MG/ML 10 ML VIAL (for RAD DIAG) IV ONE (16:16)
--- NOTE | 2016-09-28 16:37 | RADRPT ---
EXAM DATE/TIME: 09/28/2016 15:59 [facility] COMPARISON: CT BRAIN W/O CONTRAST, September 26, 2016, 21:06. INDICATIONS : Hypoxia today. IV CONTRAST: 50 cc Omnipaque 350 (iohexol) IV RADIATION DOSE: 12.89 CTDIvol (mGy) MEDICAL HISTORY : Cardiovascular disease. Hypertension. Congestive heart failure. SURGICAL HISTORY : Appendectomy. Cholecystectomy. ENCOUNTER: Initial ACUITY: 1 day PAIN SCALE: 0/10 LOCATION: chest TECHNIQUE: Volumetric scanning of the chest was performed using a pulmonary embolism protocol MIP images were re constructed. Using automated exposure control and adjustment of the mA and/or kV according to patien t size, radiation dose was kept as low as reasonably achievable to obtain optimal diagnostic quality images. FINDINGS: The examination is of good diagnostic quality. No pulmonary embolus is identified. The heart is mildly enlarged. There is atherosclerotic plaquing and coronary arteries. No significant hilar, mediastinal or axillary adenopathy is present. The pulmonary parenchyma demonstrates moderate COPD changes. The limited portions of upper abdomen visualized are unremarkable. There are old, healed rib fractures on the right. There are degenerative changes throughout the spine . CONCLUSION: 1. No pulmonary embolus identified. 2. Atherosclerotic plaquing in the coronary arteries. 3. COPD changes. 4. There are subcentimeter thyroid nodules bilaterally. Eric Rendon MD on September 28, 2016 at 16:33 Board Certified Radiologist. This report was verified electronically.
[2016-09-28] MEDS ORDERED: NORT10CA PO (19:49)
[2016-09-28] MEDS ORDERED: ZOLO50TA PO (19:49)
[2016-09-28] MEDS: QUEtiapine FUMARATE 300 MG TAB PO SCH (21:13)
[2016-09-28] MEDS: DIVALPROEX SODIUM E.R. 500 MG TAB PO SCH (21:13)
[2016-09-29] VITALS (10 sets, daily range): BP systolic 109–161; BP diastolic 55–66; PULSE 82–100; RESP 16–18; TEMP 96.5–100.9; O2SAT 93–95
[2016-09-29] MEDS: ACETAMINOPHEN/HYDROcodone 325 MG/5 MG TAB PO PRN ×4 (06:23→18:24)
--- NOTE | 2016-09-29 06:46 | PD.ORT.PN ---
Subjective Subjective Remarks POd 2 s/p left hip hemiarthroplasty doing well. has not been out of bed yet she states. Objective Vitals Vital Signs Date Time Temp Pulse Resp B/P Pulse Ox O2 Delivery O2 Flow Rate FiO2 09/29/16 04:00 100.9 86 18 161/66 95 09/29/16 00:54 2.00 09/29/16 00:00 100.4 89 18 121/59 94 09/28/16 22:26 87 09/28/16 20:33 98 Nasal Cannula 3.00 09/28/16 20:00 99.7 95 17 165/70 95 09/28/16 16:00 99.0 91 18 160/72 92 09/28/16 12:00 97.9 81 18 142/61 94 09/28/16 09:50 Nasal Cannula 3.00 09/28/16 07:52 99.0 95 17 120/59 93 I/O 09/28/16 09/28/16 09/28/16 09/29/16 09/29/16 09/29/16 07:00 15:00 23:00 07:00 15:00 23:00 Intake Total 240 ml 360 ml 240 ml 120 ml Output Total 435 ml 150 ml Balance -195 ml 210 ml 240 ml 120 ml Intake Oral 240 ml 360 ml 240 ml 120 ml Output Urine Total 375 ml 150 ml Drainage Total 60 ml # Voids 1 2 # Bowel Movements 0 0 0 0 Result Diagram: 09/28/16 0629 09/28/16 0629 Objective Remarks LLE: dressing clean and dry. +knee brace. NVI Assessment & Plan Assessment and Plan 1) Left Femoral Neck Fx s/p bipolar hemiarthroplasty -WBAT -posterior hip precautions -knee brace while in bed -daily dressing changes -ortho clear for discharge to rehab -f/u with [facility] or [facility] in 2 weeks Lamberto Lea Sep 29, 2016 06:46
[2016-09-29] MEDS: SODIUM CHLORIDE 0.9% FLUSH 5 ML FLUSH IVF SCH (09:00)
[2016-09-29] MEDS: CHOLECALCIFEROL (VIT D3) 5000 UNIT CAP PO SCH (09:23)
[2016-09-29] MEDS: cloNIDine HCL 0.1 MG TAB PO SCH ×2 (09:24→20:38)
[2016-09-29] MEDS: amLODIPine BESYLATE 5 MG TAB PO SCH (09:24)
[2016-09-29] MEDS: DIVALPROEX SODIUM E.R. 250 MG TAB PO SCH (09:24)
[2016-09-29] MEDS: ENOXAPARIN SODIUM 30 MG/0.3 ML SYRINGE SQ SCH (09:25)
[2016-09-29] MEDS: LISINOPRIL 20 MG TAB PO SCH (09:25)
[2016-09-29] MEDS: SODIUM CHLORIDE 0.9% FLUSH 5 ML FLUSH FLUSH SCH ×2 (09:25→20:38)
[2016-09-29] MEDS: MAGNESIUM HYDROXIDE SUSP 30 ML CUP PO PRN (11:55)
--- NOTE | 2016-09-29 13:13 | HHI.PR ---
Subjective Remarks No new complaints. Still requiring 3L NC. Objective Vitals Vital Signs Date Time Temp Pulse Resp B/P Pulse Ox O2 Delivery O2 Flow Rate FiO2 09/29/16 12:00 82 09/29/16 11:47 98.0 100 18 114/55 94 09/29/16 10:14 95 Nasal Cannula 3.00 09/29/16 09:30 94 Nasal Cannula 3.00 09/29/16 07:48 99.6 88 18 143/65 94 09/29/16 04:00 100.9 86 18 161/66 95 09/29/16 00:54 2.00 09/29/16 00:00 100.4 89 18 121/59 94 09/28/16 22:26 87 09/28/16 20:33 98 Nasal Cannula 3.00 09/28/16 20:00 99.7 95 17 165/70 95 09/28/16 16:00 99.0 91 18 160/72 92 09/28/16 09/28/16 09/29/16 15:00 23:00 07:00 Intake Total 360 ml 240 ml 120 ml Output Total 150 ml Balance 210 ml 240 ml 120 ml Intake Oral 360 ml 240 ml 120 ml Output Urine Total 150 ml # Voids 1 2 # Bowel Movements 0 0 0 Result Diagram: 09/28/16 0629 09/28/16 [address] Angiography 09/28/16 0000 Signed Impressions: Service Date/Time: September 15:59 - CONCLUSION: 1. No pulmonary embolus identified. 2. Atherosclerotic plaquing in the coronary arteries. 3. COPD changes. 4. There are subcentimeter thyroid nodules bilaterally. Eric Rendon MD Hip and Pelvis X-Ray 09/27/16 1030 Signed Impressions: Service Date/Time: Tuesday, September 27, 2016 11:18 - CONCLUSION: Anatomic alignment. Bam Rendon MD Head CT 09/26/16 0000 Signed Impressions: Service Date/Time: Monday, September 26, 2016 21:06 - CONCLUSION: No acute intracranial findings Kolton Valverde MD Chest X-Ray 09/26/16 0000 Signed Impressions: Service Date/Time: Monday, September 26, 2016 20:52 - CONCLUSION: No definite acute disease Kolton Valverde MD Objective Remarks General: NAD, pleasantly confused Chest: CTA bilaterally Cardiac: Regular Abd: +BS, soft ND/NT Ext: bandages are c/d/i A/P Problem List: (1) Hip fracture, left Status: Acute Plan: - Pt admitted after a trip and fall at home and sustained a left hip fracture - s/p repair by Dr. Best Lowery with left hip bipolar hemiarthroplasty on 09/27/16 - PT daily - norco prn - Constipation precautions - IS - Pt will need SNF at the conclusion of this hospitalization (2) Hypoxia Status: Acute Plan: - Pt still hypoxic and requiring supplemental O2 @ 3L currently and periodically has been on aerosol mask - Chest Xray was negative - CTA chest (09/28/16) --> no PE, copd changes - suspect pt likely is chronically hypoxic d/t COPD - continue supplemental oxygen - duonebs scheduled and prn (3) HTN (hypertension), benign Status: Acute Plan: - Cont. Lisinopril 20mg podaily, Clonidine 0.05mg BID, Norvasc 5mg po daily - Vasotec PRN (4) Bipolar 1 disorder Status: Chronic Plan: - Continue home meds Problem Qualifiers (1) Hip fracture, left: Qualified Code: S72.002A - Hip fracture, left, closed, initial encounter Mika Del Toro DO Sep 29, 2016 13:13
[2016-09-29] MEDS ORDERED: RESP: ALBUTEROL 2.5 MG/IPRATROPIUM 0.5 MG NEB (PRN) NEB (13:15)
[2016-09-29] MEDS ORDERED: methylPREDNISolone SOD SUCC 125 MG/2 ML VIAL IV PUSH SCH (13:30)
[2016-09-29] MEDS ORDERED: RESP: ALBUTEROL 2.5 MG/IPRATROPIUM 0.5 MG NEB (SCH) NEB (14:00)
[2016-09-29] MEDS: SODIUM CHLOR 0.45% 1000 ML INJ 1,000 ML IV SCH ×2 (14:26→20:38)
[2016-09-29] MEDS ORDERED: SOD PHOSPHATE/SOD BIPHOSPHATE (ADULT) ENEMA 133ML PR PRN (16:00)
[2016-09-29] MEDS: DIVALPROEX SODIUM E.R. 500 MG TAB PO SCH (20:38)
[2016-09-29] MEDS: QUEtiapine FUMARATE 300 MG TAB PO SCH (20:38)
[2016-09-30] VITALS (7 sets, daily range): BP systolic 91–145; BP diastolic 50–65; PULSE 77–99; RESP 16–17; TEMP 96.4–99.8; O2SAT 94–97
[2016-09-30] MEDS: ACETAMINOPHEN/HYDROcodone 325 MG/5 MG TAB PO PRN ×3 (06:42→18:00)
[2016-09-30] MEDS: DIVALPROEX SODIUM E.R. 250 MG TAB PO SCH (08:27)
[2016-09-30] MEDS: LISINOPRIL 20 MG TAB PO SCH (08:27)
[2016-09-30] MEDS: ENOXAPARIN SODIUM 30 MG/0.3 ML SYRINGE SQ SCH (08:27)
[2016-09-30] MEDS: CHOLECALCIFEROL (VIT D3) 5000 UNIT CAP PO SCH (08:27)
[2016-09-30] MEDS: amLODIPine BESYLATE 5 MG TAB PO SCH (08:27)
[2016-09-30] MEDS: cloNIDine HCL 0.1 MG TAB PO SCH ×2 (08:27→21:02)
[2016-09-30] MEDS: SODIUM CHLORIDE 0.9% FLUSH 5 ML FLUSH FLUSH SCH ×2 (08:28→21:00)
--- NOTE | 2016-09-30 14:08 | HHI.PR ---
Subjective Remarks Pt became hypotensive following norco Objective Vitals Vital Signs Date Time Temp Pulse Resp B/P Pulse Ox O2 Delivery O2 Flow Rate FiO2 09/30/16 08:30 Nasal Cannula 3.00 09/30/16 08:30 99.8 84 17 141/65 95 09/30/16 07:21 Nasal Cannula 3.00 09/30/16 04:00 96.4 99 17 123/63 94 09/30/16 00:00 98.6 79 16 108/53 94 09/29/16 21:14 95 Nasal Cannula 3.00 09/29/16 20:30 94 Nasal Cannula 3.00 09/29/16 20:30 84 09/29/16 20:00 98.2 88 16 148/63 95 09/29/16 16:00 96.5 84 18 109/55 93 09/29/16 09/29/16 09/30/16 15:00 23:00 07:00 Intake Total 240 ml 240 ml 120 ml Balance 240 ml 240 ml 120 ml Intake Oral 240 ml 240 ml 120 ml IV Total 0 ml # Voids 2 0 1 # Bowel Movements 0 0 0 Result Diagram: 09/28/16 0629 09/28/16 [address] Angiography 09/28/16 0000 Signed Impressions: Service Date/Time: September 15:59 - CONCLUSION: 1. No pulmonary embolus identified. 2. Atherosclerotic plaquing in the coronary arteries. 3. COPD changes. 4. There are subcentimeter thyroid nodules bilaterally. Eric Rendon MD Hip and Pelvis X-Ray 09/27/16 1030 Signed Impressions: Service Date/Time: Tuesday, September 27, 2016 11:18 - CONCLUSION: Anatomic alignment. Bam Rendon MD Head CT 09/26/16 0000 Signed Impressions: Service Date/Time: Monday, September 26, 2016 21:06 - CONCLUSION: No acute intracranial findings Kolton Valverde MD Chest X-Ray 09/26/16 0000 Signed Impressions: Service Date/Time: Monday, September 26, 2016 20:52 - CONCLUSION: No definite acute disease Kolton Valverde MD Objective Remarks General: NAD, pleasantly confused Chest: CTA bilaterally Cardiac: Regular Abd: +BS, soft ND/NT Ext: bandages are c/d/i A/P Problem List: (1) Hip fracture, left Status: Acute Plan: - Pt admitted after a trip and fall at home and sustained a left hip fracture - s/p repair by Dr. Best Lowery with left hip bipolar hemiarthroplasty on 09/27/16 - PT daily - change norco to 1/2 tablet q6h prn - Constipation precautions - IS - Pt will need SNF at the conclusion of this hospitalization - pt hypotensive following norco - stop norvasc, parameters for lisinopril - observe overnight - anticipate d/c to SNF 10/01/16 (2) COPD (chronic obstructive pulmonary disease) Status: Acute Plan: - CTA chest (09/28/16) --> no PE, copd changes - suspect pt likely is chronically hypoxic d/t COPD - continue supplemental oxygen - duonebs prn (3) HTN (hypertension), benign Status: Acute Plan: - Cont. Lisinopril 20mg po daily with parameters, Clonidine 0.05mg BID with parameters - stop Norvasc 5mg po daily - Vasotec PRN (4) Bipolar 1 disorder Status: Chronic Plan: - Continue home meds Problem Qualifiers (1) Hip fracture, left: Qualified Code: S72.002A - Hip fracture, left, closed, initial encounter Mika Del Toro DO Sep 30, 2016 14:08
[2016-09-30] MEDS: DIVALPROEX SODIUM E.R. 500 MG TAB PO SCH (21:02)
[2016-09-30] MEDS: QUEtiapine FUMARATE 300 MG TAB PO SCH (21:02)
[2016-10-01 00:10] VITALS: BP 106/55; PULSE 76; RESP 16; TEMP 98.8; O2SAT 96
[2016-10-01 04:09] VITALS: BP 105/54; PULSE 77; RESP 16; TEMP 99.8; O2SAT 96
[2016-10-01 08:00] VITALS: BP 125/58; PULSE 75; RESP 18; TEMP 98.3; O2SAT 97
[2016-10-01] MEDS: LISINOPRIL 20 MG TAB PO SCH (09:00)
[2016-10-01] MEDS: cloNIDine HCL 0.1 MG TAB PO SCH (09:00)
[2016-10-01] MEDS: ENOXAPARIN SODIUM 30 MG/0.3 ML SYRINGE SQ SCH (09:18)
[2016-10-01] MEDS: CHOLECALCIFEROL (VIT D3) 5000 UNIT CAP PO SCH (09:18)
[2016-10-01] MEDS: DIVALPROEX SODIUM E.R. 250 MG TAB PO SCH (09:18)
[2016-10-01] MEDS: SODIUM CHLORIDE 0.9% FLUSH 5 ML FLUSH FLUSH SCH (09:19)
[2016-10-01] MEDS: ACETAMINOPHEN/HYDROcodone 325 MG/5 MG TAB PO PRN (10:30)
[2016-10-01 10:36] VITALS: O2SAT 97
[2016-10-01 12:00] VITALS: BP 111/56; PULSE 86; RESP 18; TEMP 98.6; O2SAT 96
[2016-10-01] MEDS ORDERED: CHOL5000 PO (13:58)
[2016-10-01] MEDS ORDERED: DIVA250ER PO (13:58)
[2016-10-01] MEDS ORDERED: DEPA500T3 PO (13:58)
--- NOTE | 2016-10-01 14:09 | HHI.DS ---
Discharge Summary Admission Date Sep 26, 2016 at 22:51 Discharge Date: Oct 01, 2016 Admitting Diagnosis left hip fracture, hypoxia (1) Hip fracture, left Diagnosis: Principal (2) COPD (chronic obstructive pulmonary disease) Diagnosis: Principal (3) HTN (hypertension), benign Diagnosis: Secondary (4) Bipolar 1 disorder Diagnosis: Secondary Consultants Dr. Best Lowery, Orthopedic Surgeon Procedures left hip bipolar hemiarthroplasty on 09/27/[address] Best Lowery Brief History 89 y/o female with hx trip and fall while using walker with hx frequent falls was unable to stand without pain to left hip. In er had xray showed left femeral fracture ,also patient had slight hypoxia required oxygen . Patient will be admitted with orthopedic consult. CBC/BMP: 09/28/16 0629 09/28/[address] Angiography 09/28/16 0000 Signed Impressions: Service Date/Time: September 15:59 - CONCLUSION: 1. No pulmonary embolus identified. 2. Atherosclerotic plaquing in the coronary arteries. 3. COPD changes. 4. There are subcentimeter thyroid nodules bilaterally. Eric Rendon MD Hip and Pelvis X-Ray 09/27/16 1030 Signed Impressions: Service Date/Time: Tuesday, September 27, 2016 11:18 - CONCLUSION: Anatomic alignment. Bam Rendon MD Head CT 09/26/16 0000 Signed Impressions: Service Date/Time: Monday, September 26, 2016 21:06 - CONCLUSION: No acute intracranial findings Kolton Valverde MD Chest X-Ray 09/26/16 0000 Signed Impressions: Service Date/Time: Monday, September 26, 2016 20:52 - CONCLUSION: No definite acute disease Kolton Valverde MD PE at Discharge General: NAD, pleasantly confused Chest: CTA bilaterally Cardiac: Regular Abd: +BS, soft ND/NT Ext: bandages are c/d/i Hospital Course (1) Hip fracture, left Status: Acute Plan: - Pt admitted after a trip and fall at home and sustained a left hip fracture - s/p repair by Dr. Best Lowery with left hip bipolar hemiarthroplasty on 09/27/16 - PT daily - change norco to 1/2 tablet q6h prn d/t hypotension with narcotics - Constipation precautions - IS - discharge to SNF 10/01/16 - see discharge orders - pt hypotensive following norco - stop norvasc, parameters for lisinopril - observe overnight - anticipate d/c to SNF 10/01/16 (2) COPD (chronic obstructive pulmonary disease) Status: Acute Plan: - CTA chest (09/28/16) --> no PE, copd changes - suspect pt likely is chronically hypoxic d/t COPD - continue supplemental oxygen - duonebs prn (3) HTN (hypertension), benign Status: Acute Plan: - Cont. Lisinopril 20mg po daily with parameters, - stop Clonidine 0.05mg BID - stop Norvasc 5mg po daily - Vasotec PRN (4) Bipolar 1 disorder Status: Chronic Plan: - Continue home meds Pt Condition on Discharge: Stable Discharge Disposition: Discharge to SNF Discharge Instructions DIET: Follow Instructions for: Heart Healthy Diet Activities you can perform: Partial Weight Bearing Other Activity Instructions: Please see Orthopedic orders Follow up Referrals: Orthopedics - 10/12/16 @ [facility] with Best Lowery MD PCP Follow-up - [address] Godfrey Ludwig f/u with PCP, Dr. Godfrey Ludwig, one week after discharge from [facility] New Medications: Divalproex ER (Depakote ER) 500 Mg Emilio 500 MG PO HS Control Seizures #30 Ref 0 TAB Hydrocodone-Acetaminophen ([place]) 7.5-325 mg Tab 1 TAB PO Q4H PRN PAIN #60 Ref 0 TAB Rivaroxaban (Xarelto) 10 Mg Tab 10 MG PO DAILY Blood Clot Prevention #14 Ref 0 TAB Walker/Adult/Folding (Walker/Adult/Folding) 1 Mis Mis 1 EA .ROUTE DIRECTED #1 Ref 0 EA Cholecalciferol (Vitamin D3) 5,000 Unit Cap 5000 UNITS PO DAILY vit d def Days 30 CAP Divalproex ER (Depakote ER) 250 Mg Emilio 250 MG PO DAILY bipolar Days 30 TAB Continued Medications: Divalproex ER 500 mg (Depakote ER 500 mg) 500 Mg Tab 500 MG PO HS TAB Lisinopril 20 mg (Lisinopril 20 mg) 20 Mg Tab 1 TAB PO DAILY TAB Quetiapine Fumarate (Quetiapine Fumarate) 200 Mg Tab 150 MG PO HS TAB Sertraline (Zoloft) 50 Mg Tab 75 MG PO DAILY Ref 0 TAB Discontinued Medications: () 5 Mg Tab 5 MG PO DAILY TAB Clonidine 0.1 mg (Catapres 0.1 mg) 0.1 Mg Tab 0.05 TAB PO BID TAB () 250 Mg Tab 1 TAB PO DAILY TAB Hydrochlorothiazide (Hctz) 25 Mg Tab 25 MG PO DAILY PRN URINE OUTPUT < OR = 30 ML/HR TAB () 15 ML SWISH-SWAL Q3H MAGIC MOUTHWASH=MIX 1/3 VISCOUS LIDOCAINE(60 ML),1/3 MAALOX (60 ML),AND 1/3BENADRYL(60 ML) TO EQUAL 180 ML TOTAL. #180 ML Nortriptyline (Nortriptyline) 10 Mg Cap 10 MG PO HS Depression Control Ref 0 CAP () 10 Mg Cap 1 CAP PO HS CAP Mika Del Toro DO Oct 01, 2016 14:09
--- NOTE | 2016-10-01 14:10 | HHI.DCPOC ---
Discharge Care Plan Diagnosis: (1) Hip fracture, left (2) CKD (chronic kidney disease) stage 3, GFR 30-59 ml/min (3) HTN (hypertension), benign (4) Bipolar 1 disorder Goals to Promote Your Health * To prevent worsening of your condition and complications * To maintain your health at the optimal level Directions to Meet Your Goals Take your medications as prescribed Follow your dietary instruction Follow activity as directed Keep your appointments as scheduled Take your immunizations and boosters as scheduled If your symptoms worsen call your PCP, if no PCP go to Urgent Care Center or Emergency Room Smoking is Dangerous to Your Health. Avoid second hand smoke Call the 24-hour hour crisis hotline for domestic abuse at Mika Del Toro DO Oct 01, 2016 14:10
== END 2016-10-01 14:32 | DRG 470 ==
LOC: NEPE 19:00 → NEDA 22:51 → N06B 09-27 00:44
PROVIDERS: ADMIT Hospitalist; ATTEND Hospitalist
PROC: 0SRS0JA Replacement of Left Hip Joint, Femoral Surface with Synthetic Substitute, Uncemented, Open Approach (ICD-10-PCS; principal; 2016-09-27 09:02)
DX: S72.002A Fracture of unspecified part of neck of left femur, initial encounter for closed fracture (principal); J44.9 Chronic obstructive pulmonary disease, unspecified; I10 Essential (primary) hypertension; R09.02 Hypoxemia; F31.9 Bipolar disorder, unspecified; M19.90 Unspecified osteoarthritis, unspecified site; F41.9 Anxiety disorder, unspecified; M81.0 Age-related osteoporosis without current pathological fracture; I95.2 Hypotension due to drugs; T40.695A Adverse effect of other narcotics, initial encounter; Z87.891 Personal history of nicotine dependence; Z91.81 History of falling; W01.0XXA Fall on same level from slipping, tripping and stumbling without subsequent striking against object, initial encounter; Y93.01 Activity, walking, marching and hiking; Y92.009 Unspecified place in unspecified non-institutional (private) residence as the place of occurrence of the external cause
CPT/HCPCS: 51702; 70450; 71010; 71275; 73502; 80048; 80164; 82306; 83735; 85007; 85025; 85027; 85610; 86850; 86900; 86901; 87641; 93005; 94664; 96374; 96375; C1776; J0690; J1580; J1650; J2250; J2270; J2405; J2710; J3010; J3370; J7050; J7120; J7613; L1830; Q9967